=== PATIENT | male | born 1980 | race Hispanic/Latino ===

== ENCOUNTER 2025-05-03 18:00 | Emergency (ER) | payer SELFPAY ==
[~2025-05-03] VITALS: Ht 170.2 cm; Wt 108.9 kg
--- NOTE | 2025-05-03 20:16 | ERN ---
ED Note History of Present Illness Stated Complaint: LEFT SIDE OF FACE BURNING, LEFT FACIAL NUMBNESS Chief Complaint: Multiple Complaints Time Seen by MD: 20:07 Dictation: PATIENT IS A 44-YEAR-OLD MALE COMPLAINING OF THE FRONTAL TEMPORAL HEADACHE WITH BURNING TO HIS FACE AND NUMBNESS TO HIS FACE FOR TWO WEEKS. 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 THERE WAS NO OTHER ACUTE CHANGES HE DID NOT HAVE ANY VISION CHANGES. AT THAT TIME. HE WENT TO SEE HIS PRIMARY CARE DOCTOR, DR. Hagan, was sent him to an fire equipment inspector. He said the fire equipment inspector's evaluated him put him on some medications and told him go back and see his doctor. He states he has not had a CT of the head and was concerned that his doctor and not ordered it nor did the fire equipment inspector. He is currently alert and oriented x4 speech is clear he denies any vision changes. NIH is 0. Allergies: Coded Allergies: No Known Allergies (Unverified Allergy, Unknown, 05/03/25) Past Medical History Past Medical History: Hypertension, Immunosuppression Surgical History: None RN Note Reviewed/Agreed w/PFSH: Yes Review of System Dictation CONSTITUTIONAL: Negative except for HPI HEAD/FACE: Negative except for HPI left forehead EENT: Negative except for HPI RESPIRATORY: Negative except for HPI GASTROINTESTINAL/ABDOMINAL: Negative except for HPI GENITOURINARY: Negative except for HPI MUSCULOSKELETAL: Negative except for HPI INTEGUMENTARY: Negative except for HPI NEUROLOGICAL/PSYCH: Negative except for HPI left temporoparietal headache HEMATOLOGIC/LYMPHATIC: Negative except for HPI All Systems Negative, Except as noted above. 13 point review of systems assessed and all negative except for above. Initial Vital Sign VS Vital Signs Date Time Temp Pulse Resp B/P (MAP) Pulse Ox O2 Delivery O2 Flow Rate FiO2 05/03/25 19:09 99.9 125 20 168/98 98 Room Air 05/03/25 20:06 0 21 Physical Exam Dictation Vital Signs reviewed General Appearance: Alert, oriented x 3, no mild [place] distress, well developed, nourished. Head and Face: non-traumatic. Eyes: PERRL, pink conjunctivas, eyelid no trauma, anterior chamber with arcus senilis. No visual field cuts Ears: Pinnas intact and no signs of trauma or erythema ear canals clear and no discharge TM no erythema Nose: No discharge, no bleeding. Oropharynx: Mouth normal, tongue pink, pharynx clear,no erythema, tonsils no exudates, no abscesses noted, mucous membrane moist Neck: Supple, non-tender, no thyromegaly, no masses, no JVD, no bruits Breast:Deferred Chest:No tenderness, no crepitus, no paradoxical movement, no retractions Lungs:Clear, well-ventilated, symmetric, no rales, no wheezing, no rhonchi, no stridor, good breath sounds bilaterally Heart: Regular rate, regular rhythm, no murmur, no gallops Vascular: no peripheral edema, Abdomen: Soft, positive bowel sounds, nondistended, no guarding, nontender, no rebound, no masses no hepatomegaly, no splenomegaly, no Rodriguez's sign, no hernias. Rectal: Deferred Genital: Deferred Neurological: Normal speech, motor function intact, sensory function intact NIH is 0 Musculoskeletal: Neck nontender, full range of motion, back nontender, full range of motion, Extremities: nontender, full range of motion Skin: Color pink, dry, no turgor, no rash, no lacerations, no abrasions, no contusions. Lymphatic: Deferred Results (Laboratory/Radiology) Laboratory/Radiology EXAM: CT Head Without IV contrast. CLINICAL HISTORY: PATIENT HAS A LEFT-SIDED HEADACHE WITH TINGLING TO HIS FOREHEAD TWO WEEKS. TECHNIQUE: Axial computed tomography images of the head/brain without intravenous contrast. COMPARISON: None provided. FINDINGS: BRAIN: No evidence of acute hemorrhage. No mass lesion. No CT evidence for acute territorial infarct. No midline shift or extra-axial collections. VENTRICLES: No hydrocephalus. ORBITS: The orbits are unremarkable. SINUSES AND MASTOIDS: The paranasal sinuses and mastoid air cells are clear. BONES: No fracture. SOFT TISSUES: Unremarkable. IMPRESSION: No acute intracranial abnormality. /[place] Labs Reviewed?: Yes ED Course ED Course Orders Procedure Category Date Status Time Ct Head/Brain W/O CT 05/03/25 Resulted Contrast 20:12 Visual Acuity Test CPOE 05/03/25 Transmitted (Er) 20:16 Ibuprofen 800 Mg Tab PHA 05/03/25 In Process (Motrin) 22:30 Current Medications Medications (Trade) Dose Ordered Sig/Ashley Route PRN Reason Start Time Stop Time Status Last Admin Dose Admin Ibuprofen (moTRIN) 800 mg ONCE ONCE PO 05/03/25 22:30 05/03/25 22:31 Vital Signs Date Time Temp Pulse Resp B/P (MAP) Pulse Ox O2 Delivery O2 Flow Rate FiO2 05/03/25 20:06 99.5 110 20 144/97 97 Room Air* 0 21 05/03/25 19:09 99.9 125 20 168/98 98 Room Air 2110/VISUAL ACUITY OD 20/20 OS 20/25 OU 20/20 2230/PATIENT WILL BE TREATED FOR LEFT TEMPORAL HEADACHE IBUPROFEN WAS GIVEN PATIENT IS SO T SEE HIS PRIMARY CARE DOCTOR ON MONDAY FOR FOLLOW UP AND MANAGEMENT. Medical Decision Making MDM MEDICAL DECISION-MAKING BASED ON PHYSICAL EVALUATION VISUAL ACUITY TO RULE OUT VISION CHANGES AND CT OF THE HEAD DUE TO CHRONICITY OF HEADACHE AND PAIN. NO ACUTE FINDINGS ON CT VISION IS COMPLETELY NORMAL PATIENT DISCHARGED HOME WITH LEFT RETRO-ORBITAL HEADACHE GIVEN IBUPROFEN AND TOLD TO SEE HIS DOCTOR MONDAY DX & DISP Disposition: Discharge Departure Impression: Primary Impression: Acute tension headache Condition: Stable Scripts Ibuprofen (Ibuprofen) 800 Mg Tablet 800 MG PO Q6H PRN for PAIN, #30 TAB Prov: ALBERTA NOWAK [facility] CONSULT[employer] 05/03/25 Additional Instructions: FOLLOW-UP WITH PRIMARY CARE PROVIDER IN 1 TO 2 DAYS. TAKE MEDICATIONS D IRECTED HERE IN THE EMERGENCY ROOM. OKAY TO CONTINUE HOME MEDICATIONS UNLESS OTHERWISE DISCUSSED DURING YOUR VISIT IN THE EMERGENCY ROOM TODAY. RETURN TO YOUR NEAREST EMERGENCY ROOM IF SYMPTOMS WORSEN OR IF THERE IS NO IMPROVEMENT. CALL 911 IF YOU NEED IMMEDIATE ASSISTANCE. TAKE TYLENOL OR MOTRIN [id number] NEEDED AND IF NO CONTRAINDICATIONS ARE PRESENT. INCREASE ORAL HYDRATION. A WOUND CULTURE OR URINE CULTURE WAS ORDERED HERE IN THE EMERGENCY ROOM DEPARTMENT PLEASE FOLLOW-UP WITH PRIMARY CARE PROVIDER AND ADVISE THEM TO GET REPEAT PORTS FROM OUR FACILITY. IF YOU HAD ANY NIKKI WRAP/SPLINTS THAT WERE APPLIED HERE, PLEASE DO NOT REMOVE THEM UNTIL YOU SEE YOUR PRIMARY CARE OR SPECIALTY. TAKE IBUPROFEN NEEDED FOR PAIN. SEE YOUR PRIMARY CARE DOCTOR, DR. HAGAN MONDAY FOR FOLLOW UP AND MANAGEMENT. CONTINUE ALL MEDICATIONS AND TREATMENTS FROM YOUR OPHTHALMOLOGY VISIT Referrals: DAMION HAGAN (PCP) Time of Disposition: 22:33 I have reviewed the case, and I agree with, Diagnosis and Plan ALBERTA NOWAK [facility] May 03, 2025 20:16
--- NOTE | 2025-05-03 22:09 | HMCIMG ---
EXAM: CT Head Without IV contrast. CLINICAL HISTORY: PATIENT HAS A LEFT-SIDED HEADACHE WITH TINGLING TO HIS FOREHEAD TWO WEEKS. TECHNIQUE: Axial computed tomography images of the head/brain without intravenous contrast. COMPARISON: None provided. FINDINGS: BRAIN: No evidence of acute hemorrhage. No mass lesion. No CT evidence for acute territorial infarct. No midline shift or extra-axial collections. VENTRICLES: No hydrocephalus. ORBITS: The orbits are unremarkable. SINUSES AND MASTOIDS: The paranasal sinuses and mastoid air cells are clear. BONES: No fracture. SOFT TISSUES: Unremarkable. IMPRESSION: No acute intracranial abnormality. /[place]
[2025-05-03] MEDS ORDERED: IBUP-2071 PO (22:33)
[2025-05-03 22:57] VITALS: BP 135/92; PULSE 96; RESP 20; TEMP 98.8; O2SAT 98
== END 2025-05-03 22:59 | disposition home or self-care (01) ==
LOC: EDH 18:00
DX: G44.209 Tension-type headache, unspecified, not intractable (principal); I10 Essential (primary) hypertension
CPT/HCPCS: 70450; 99284